=== PATIENT | female | born 1975 | race Caucasian/White ===

== ENCOUNTER → 2022-04-30 | Outpatient (CLI) | payer MEDICARE, OTHER | LOC: ECHO 12:30 | DX: R07.9 Chest pain, unspecified (principal); R94.39 Abnormal result of other cardiovascular function study; I10 Essential (primary) hypertension; E11.9 Type 2 diabetes mellitus without complications | CPT/HCPCS: ECHO; 78452; 93017; 93306; A9502; J2785 ==